=== PATIENT | female | born 1985 | race Asian ===

== ENCOUNTER → 2020-12-14 | Outpatient (CLI) | payer OTHER ==
[2015-09-11 11:14] VITALS: BP 109/66
[~2020-12-14] MED LIST: MEDR10TA PO
[2020-12-14 13:04] LABS: BASO # 0.2 x10^3/uL (0.0-0.2); BASO % 2 % (0-3); EOS # 0.2 x10^3/uL (0.0-0.7); EOS % 2 % (0-3); HEMATOCRIT 35.6 % (36.0-47.0); HEMOGLOBIN 11.6 g/dL (12.0-15.5); LYMPH # 2.2 x10^3/uL (1.0-4.8); LYMPH % 24 % (24-48); MEAN CORPUSCULAR HEMOGLOBIN 26 pg (25-35); MEAN CORPUSCULAR HGB CONC 33 g/dL (31-37); MEAN CORPUSCULAR VOLUME 80 fL (79-100); MONO # 0.5 x10^3/uL (0.0-1.1); MONO % 6 % (0-9); NEUT # 5.9 x10^3/uL (1.8-7.7); NEUT % 66 % (31-73); PLATELET COUNT 558 x10^3/uL (140-400); RED BLOOD COUNT 4.44 x10^6/uL (3.50-5.40); WHITE BLOOD COUNT 9.1 x10^3/uL (4.0-11.0)
[2020-12-14 13:13] LABS: ALBUMIN 3.6 g/dL (3.4-5.0); ALBUMIN/GLOBULIN RATIO 0.9 (1.0-1.7); CALCIUM 8.6 mg/dL (8.5-10.1); CREATININE 0.7 mg/dL (0.6-1.0); GFR 94.2; POTASSIUM 3.9 mmol/L (3.5-5.1); TOTAL BILIRUBIN 0.4 mg/dL (0.2-1.0); TOTAL PROTEIN 7.6 g/dL (6.4-8.2)
[2020-12-14 13:14] LABS: BILIRUBIN,URINE NEGATIVE (NEG); CLARITY,URINE CLOUDY; COLOR,URINE YELLOW; NITRITE,URINE NEGATIVE (NEG); PH,URINE 5.5 (<5.0-8.0); PROTEIN,URINE NEGATIVE (NEG-TRACE); UROBILINOGEN,URINE 0.2 mg/dL (0.2 mg/dL)
[2020-12-14 13:49] LABS: BACTERIA,URINE 0 /HPF (0-FEW); RBC,URINE 0 /HPF (0-2); WBC,URINE OCC /HPF (0-4)
== END ==
LOC: SURGPAT 12:17
PROVIDERS: ATTEND Obstetrics & Gynecology
DX: Z01.812 Encounter for preprocedural laboratory examination (principal)
CPT/HCPCS: 36415; 80053; 81001; 85025

== ENCOUNTER 2020-12-19 06:06 | Observation (INO) | payer OTHER ==
[2020-12-14 12:40] VITALS: BP 121/59
[2020-12-19] VITALS (11 sets, daily range): BP systolic 99–130; BP diastolic 63–84
[~2020-12-19] VITALS: Ht 157.5 cm; Wt 79.0 kg
[~2020-12-19 06:06] MED LIST changes: +HYDROmorphone 2 MG/ML VIAL IVP PRN; +PROCHLORPERAZINE 10 MG/2 ML VIAL. IVP PRN; +fentaNYL PF VIAL 100 MCG/2 ML VIAL IVP PRN
[2020-12-19] MEDS: IV RINGERS,LACTATED 1000ML 1,000 ML IV SCH ×2 (06:43→10:57)
[2020-12-19] MEDS ORDERED: ISOSULFAN BLUE 1% 50 MG/5 ML VIAL. SQ ONE ×2 (06:52→06:53)
[2020-12-19] MEDS ORDERED: ESTROGENS, CONJ VAGINAL CREAM 30GM TUBE. ONE (06:53)
[2020-12-19] MEDS ORDERED: BUPIVACAINE-EPI 0.5% 30 ML VIAL KIT. ONE (06:53)
[2020-12-19] MEDS ORDERED: LIDOCAINE 2% PF 5 ML VIAL. ONE (07:00)
[2020-12-19] MEDS ORDERED: DEXAMETHASONE SOD PHOS 4 MG/ML VIAL ONE (07:00)
[2020-12-19] MEDS ORDERED: PROPOFOL 10 MG/ML (20ML) VIAL. IV ONE ×2 (07:00→07:11)
[2020-12-19] MEDS ORDERED: ONDANSETRON PF 4 MG/2 ML VIAL. ONE (07:00)
[2020-12-19] MEDS ORDERED: ROCURONIUM 50 MG/5 ML VIAL. ONE ×2 (07:01→08:18)
[2020-12-19] MEDS ORDERED: SUCCINYLCHOLINE 200 MG/10 ML VIAL. ONE (07:01)
[2020-12-19] MEDS ORDERED: MIDAZOLAM HCL/PF 2 MG/2 ML VIAL. ONE (07:01)
[2020-12-19] MEDS ORDERED: fentaNYL PF VIAL 100 MCG/2 ML VIAL ONE ×3 (07:01→11:26)
[2020-12-19] MEDS ORDERED: BUPIVACAINE-EPI 0.25%-1:200000 MPF 30 ML VIAL. ONE (07:25)
[2020-12-19] MEDS ORDERED: NEOSTIGMINE METHYLSULFATE 5 MG/5 ML SYRINGE. ONE (08:17)
[2020-12-19] MEDS ORDERED: GLYCOPYRROLATE 1 MG/5 ML VIAL. ONE (08:17)
[2020-12-19] MEDS ORDERED: KETAMINE HCL IN NACL, ISO-OSM 50 MG/5 ML SYRINGE ONE (08:18)
--- NOTE | 2020-12-19 10:27 | PDOC ---
BRIEF OPERATIVE NOTE Date: Dec 19, 2020 Pre-Op Diagnosis simple endometrial hyperplasia, menorrhagia, anemia Post-Op Diagnosis same Procedure Performed LAVH/bilateral salpingectomy/lysis of adhesions Surgeon Dr. Gonzales Building Services Supervisor TRAN Gutierres Anesthesiologist Dr. Meehan Anesthesia Type: General Blood Loss 100cc IV Fluid 1L Urine Output 350cc clear via tan Specimens Obtained cervix, uterus, bilateral tubes Findings enlarged RV uterus, + adhesive disease and omental infraumbilical hernia, normal bilateral tubes and ovaries Complications none Operative Note [id number] ASHLEY GONZALES MD Dec 19, 2020 10:27
[2020-12-19] MEDS ORDERED: ONDANSETRON PF 4 MG/2 ML VIAL. IV PRN (10:30)
[2020-12-19] MEDS ORDERED: HYDROcodone/APAP 5/325MG 1 TAB TABLET PO PRN (10:30)
[2020-12-19] MEDS ORDERED: LACTULOSE 20 GM/30 ML SOLUTION. PO PRN (10:30)
[2020-12-19] MEDS ORDERED: MAG HYDROX/ALUMINUM HYD/SIMETH 30 ML ORAL.SUSP PO PRN (10:30)
[2020-12-19] MEDS ORDERED: ZOLPIDEM 5 MG TABLET. PO PRN (10:30)
[2020-12-19] MEDS ORDERED: diphenhydrAMINE HCL 25 MG CAPSULE PO PRN (10:30)
[2020-12-19] MEDS ORDERED: diphenhydrAMINE 50 MG/ML VIAL IV PRN (10:30)
[2020-12-19] MEDS ORDERED: MAGNESIUM HYDROXIDE 2,400 MG/30 ML ORAL.SUSP. PO PRN (10:30)
[2020-12-19] MEDS ORDERED: MORPHINE SULFATE 2 MG/ML INJ. IV PRN (10:30)
[2020-12-19] MEDS ORDERED: 0.9 % SODIUM CHLORIDE 10 ML DISP.SYRIN. IV PRN (10:30)
[2020-12-19] MEDS ORDERED: NALOXONE 0.4 MG/ML VIAL. IV PRN (10:30)
[2020-12-19] MEDS ORDERED: CALCIUM CARBONATE 500 MG TAB.CHEW PO PRN (10:30)
[2020-12-19] MEDS ORDERED: SIMETHICONE 80 MG TAB.CHEW PO PRN (10:30)
--- NOTE | 2020-12-19 10:50 | OP ---
DATE OF SURGERY: 12/19/2020 PREOPERATIVE DIAGNOSES: Menorrhagia, anemia and simple endometrial hyperplasia on biopsy in the office. POSTOPERATIVE DIAGNOSES: Menorrhagia, anemia, simple endometrial hyperplasia on biopsy in the office and adhesive disease. PROCEDURE: Laparoscopic-assisted vaginal hysterectomy, bilateral salpingectomy and lysis of adhesions. SURGEON: Agata Gonzales MD POST PRODUCTION ASSISTANT: TRAN Rasmussen ANESTHESIOLOGIST: Dr. Meehan. BLOOD LOSS: 100 mL. URINE OUTPUT: 350 mL clear via Ducnan catheter. IV FLUIDS: One liter crystalloid. SPECIMENS: Cervix, uterus, bilateral tubes. FINDINGS: She had an enlarged retroverted uterus, some adhesive disease on the left side and she had omental adhesions to the anterior abdominal wall. When these were taken down, it did look to be that there was a little hernia there from her prior tubal ligation, no bowel in it, but omentum. Normal bilateral tubes and ovaries. COMPLICATIONS: None. DESCRIPTION OF PROCEDURE: This patient was taken to the operating room where general anesthesia was placed. The patient was placed in dorsal lithotomy position in Caesar stirrups. The patient's abdomen and vagina were both prepped and draped in the normal sterile fashion and a Duncan catheter had been inserted under sterile technique. Upon my arrival, a timeout was performed. Once everyone agreed on the patient, the site, the procedure, the antibiotics, the procedure was initiated. A bivalve speculum was placed in the patient's vagina. Single-tooth tenaculum was used to grasp the anterior lip of the cervix. 10 mL of 0.25% Marcaine with epinephrine was used to circumferentially inject around the cervix for both hemodissection and hemostatic purposes later. The open bivalve speculum was then removed. Top gloves were discarded and changed. Attention was then turned to the abdomen where a small infraumbilical skin incision was made with a scalpel. Curved Abigail was used to dissect through the subcuticular layer to the fascia. The 5 mm Visiport was used directly into the abdominal cavity. Direct abdominal placement was confirmed via the laparoscope. Opening patient pressure was 3-4 mmHg. Carbon dioxide gas was used to appropriately insufflate the abdominal cavity to maintain a pressure of 15 mmHg. Overhead lights were dimmed and Trendelenburg position was assumed. There was omentum right in front of it. I could not tell if it was on the tip of the trocar or in front of the trocar. So, I was able to easily get around it and put a trocar in laterally after transilluminating the abdominal wall, finding an area clear of any vasculature, making a small incision and putting in a 5 mm disposable atraumatic trocar under direct visualization. Camera was moved laterally and it was easily seen that it was completely separate from the trocar, it was in front of the trocar on the anterior abdominal wall. So, the LigaSure was used to take down. The third trocar was put in the left lower quadrant port under direct visualization, finding an area clear of any vasculature, transilluminating the wall, making the incision and placing in under direct visualization. 3-4 mL of air was placed in all three trocar cuffs under direct visualization. At this point, the Maryland was used to gently move around that adhesion making sure there was no bowel. It was all omentum and finding openings in it and it was gently pulled down with the Maryland and then the monopolar hook was used to cut across it and then cross it with the grasper of the LigaSure. There was definitely peritoneum on the other side of the adhesion that was from the anterior abdominal wall. It looked like it was a empty hernia sac now once the omentum was pulled down, but it was out of the way and we could see to operate now. So at this point, the left tube and ovary were elevated finding the ureter coursing low staying below the tube above the ovary, leaving the ovaries per the patient request, doing a salpingectomy, crossing the left uteroovarian pedicle and the left round ligament, cauterizing and cutting with the LigaSure the whole way. This was done exactly the same on the right side, elevating the right tube and ovary finding the ureter coursing low in the pelvis there, again staying under the tube above the ovary, doing a salpingectomy per the patient request with the LigaSure, cauterizing and cutting crossing the right uteroovarian pedicle and then the right round ligament. Once this was done, the uterus was pushed cephalad to the head of the bed and the bladder flap was created sharply and elevated with the Maryland and the monopolar hook was used to cut across and create a bladder flap and gently pulling it down. Once this was done, crossing contralaterally, hugging the cervix, getting the uterines and once the bladder was down, cauterizing and cutting through the cardinal and broad ligaments down to the level of the uterosacral and then crossing and getting the uterine vessels on the right side as well and then hugging posteriorly staying on that cervix and going down posteriorly again making sure the bladder was down anteriorly. Once this was done, the uterus was completely free and blanched. All instruments were removed from the abdomen and attention was turned vaginally. The single tooth and Valtchev were removed. The weighted speculum was placed in the vagina. Thyroid Sree clamps were placed on the anterior and posterior lips of the cervix respectively. A scalpel was used to make a circumferential incision in the cervix. An open Ray-Dayan 4 x 4 was used to gently push up the anterior bladder peritoneum and the peritoneum was digitally and bluntly entered. The curved Shade was placed in the anterior cul-de-sac. The 4 x 4 had been removed. At this point, the cervix was elevated and the posterior cul-de-sac was sharply entered with the curved Cee scissors and a #0 Vicryl stitch was used to secure the posterior peritoneum to the vaginal cuff. It was tagged with a curved Abigail clamp. The needle was cut and passed off. The short weighted vaginal speculum was removed and replaced with the long weighted Brittney speculum in the posterior cul-de-sac. At this point, curved Josselin clamps x 2 were placed on the patient's left uterosacral ligament where they were doubly clamped with curved Josselin clamps, cut with curved Cee scissors and suture ligated x 2 with 0 Vicryl. Second one was taken through the vaginal cuff securing uterosacral ligament to the vaginal cuff, tagged with a straight Abigail clamp. The needle was cut and passed off. This was all done exactly the same on the right side, double clamping the uterosacrals with curved Josselin's, cutting with curved Cee scissors, suture ligating x 2 with 0 Vicryl, taking the second one through the vaginal cuff, tagging it with a straight Abigail clamp, cutting and passing the needle off. The remaining pedicles on both sides were delineated with the curved right angle clamp and vaginal LigaSure was used to cauterize and cut. Cervix, uterus, bilateral tubes were delivered in total and passed off for permanent pathology. A sponge stick was used to examine the pedicles, which appeared to be dry. You could see the anterior bladder peritoneum very easily. It was grasped with a long Allis. The long Brittney speculum was removed from the posterior cul-de-sac and replaced with a short weighted vaginal speculum again. 2-0 Vicryl was taken through the anterior bladder peritoneum, left uterosacral ligament, posterior peritoneum and right uterosacral ligament, thus closing the peritoneum in a pursestring like fashion. Once this was done, the right and left uterosacral tags were clipped. The cuff was closed in an anterior to posterior running locked fashion and tied to that posterior cuff tag. A few imbricating stitches were placed for hemostasis and the cuff looked hemostatic and dry and everything looked good and was examined with a sponge stick. Once hemostasis was assured here, all instruments were accounted below x 2 by OR personnel. All gloves were discarded and changed and attention was turned back above for a second look. The patient was placed back in Trendelenburg, overhead lights were dimmed. Copious irrigation revealed hemostasis. Right and left pericolic gutters were clear. Tisseel was placed over the cuff with excellent results and pedicles. Both ovaries remained intact as per the patient request. So, all the 4-5 mL of air was taken out from the trocar cuff. The right and left lower quadrant ports were removed under direct visualization. Gas was released. The cuff was examined again before coming out and it still remained hemostatic and dry. So, gas was released through that umbilical port and then it was removed as well. All 3 port sites were closed with 4-0 nylon at the skin and injected with 10 mL of local. The patient's catheter was removed. The patient was awakened from anesthesia and has been brought to recovery room in stable condition. JUSTICE DR: Julius TID: [id number]
[2020-12-19] MEDS ORDERED: KETOROLAC 30 MG/ML VIAL. ONE (10:59)
[2020-12-19] MEDS: MORPHINE SULFATE 2 MG/ML INJ. IVP PRN ×2 (11:02→11:24)
[2020-12-19] MEDS ORDERED: KETOROLAC 30 MG/ML VIAL. IVP ONE (11:15)
[2020-12-19] MEDS: fentaNYL PF VIAL 100 MCG/2 ML VIAL IVP PRN ×2 (11:20→11:29)
[2020-12-19] MEDS: oxyCODONE/APAP 5/325 1 TAB TABLET PO PRN (22:16)
[2020-12-20] MEDS: oxyCODONE/APAP 5/325 1 TAB TABLET PO PRN ×3 (02:14→13:32)
[2020-12-20 02:15] VITALS: BP 116/68
[2020-12-20 06:28] VITALS: BP 121/72
[2020-12-20 08:15] VITALS: BP 108/43
--- NOTE | 2020-12-20 09:37 | PDOC ---
SURGICAL PROGRESS NOTE DATE: 12/20/20 TIME: 09:31 Subjective Doing well except gassy pain. Up eating breakfast upon exam. No vaginal bleeding. Voiding and ambulating well Vital Signs Vital Signs Date Time Temp Pulse Resp B/P (MAP) Pulse Ox O2 Delivery O2 Flow Rate FiO2 12/20/20 08:15 98.2 54 18 108/43 (64) Room Air 98.2 12/20/20 06:28 99 12/19/20 10:38 10 I&O Intake and Output 12/20/20 07:00 Intake Total 1450 ml Output Total 2200 ml Balance -750 ml Intake IV Total 1450 ml Output Urine Total 1950 ml Emesis 150 ml Estimated Blood Loss 100 ml # Voids 3 PATIENT HAS A BUSTOS: No General: Alert, Oriented X3, Cooperative, No acute distress HEENT: Atraumatic Heart: Regular rate Abdomen: Soft, Other (port sites all c/d/i) Extremities: No clubbing, No cyanosis, No edema Skin: No rashes, No breakdown, No significant lesion Neuro: Normal speech Psych/Mental Status: Mental status NL, Mood NL Labs Laboratory Tests Test 12/19/20 06:26 Bedside Urine HCG, Qualitative Hcg negative (Negative) I have reviewed the following labs still not even drawn yet this am Cardiovascular: No pertinent hx Pulmonary: No pertinent hx GI: No pertinent hx Heme/Onc: Anemia NOS Assessment/Plan POD#1 s/p LAVH/bilateral salpingectomy/lysis of adhesions Routine PO care d/c to home later today if bloodwork ok keep scheduled follow up in one week with me in the office already has narcotic pain meds at home ok for OTC ibuprofen as needed to alternate as well call or return sooner for any other questions or concerns not limited to but including pain unrelieved with pain meds, increased or unexplained vb or T>100.4 NPV x 6 weeks light/limited activity x 2 [address] x 1 week or while on narcotic pain meds Justicifation of Admission Dx: Justifications for Admission: Justification of Admission Dx: Yes ASHLEY WILKS MD Dec 20, 2020 09:37
--- NOTE | 2020-12-20 09:40 | PDOC3 ---
Discharge Summary Visit Information Date of Admission: Dec 19, 2020 Date of Discharge: Dec 20, 2020 Final Diagnosis simple endometrial hyperplasia Brief Hospital Course Allergies Allergies Coded Allergies Type Severity Reaction Last Updated Verified No Known Drug Allergies 12/19/20 No Vital Signs Vital Signs Date Time Temp Pulse Resp B/P (MAP) Pulse Ox O2 Delivery O2 Flow Rate FiO2 12/20/20 08:15 98.2 54 18 108/43 (64) Room Air 98.2 12/20/20 06:28 99 12/19/20 10:38 10 Lab Results Laboratory Tests Test 12/19/20 06:26 Bedside Urine HCG, Qualitative Hcg negative (Negative) Brief Hospital Course Ms. Morrison is a 35 old female who presented with menorrhagia, anemia, simple endometrial hyperplasia on emb in office. Presented for hysterectomy and definitive management. She underwent LAVH/bilateral salpingectomy and lysis of adhesions with small infraumbilical hernia. she has had an unremarkable postoperative course. She is voiding without problems, no vag bleeding. as long as hgb is ok and bloodwork good will dc to home later today Assessment Assessment POD#1 s/p LAVH/bilateral salpingectomy/lysis of adhesions Routine PO care d/c to home later today if bloodwork ok keep scheduled follow up in one week with me in the office already has narcotic pain meds at home ok for OTC ibuprofen as needed to alternate as well call or return sooner for any other questions or concerns not limited to but including pain unrelieved with pain meds, increased or unexplained vb or T>100.4 NPV x 6 weeks light/limited activity x 2 weeks [address] x 1 week or while on narcotic pain meds Discharge Information Condition at Discharge: Stable Follow Up: Weeks Disposition/Orders: D/C to Home Discontinued Medications Medroxyprogesterone Acetate (Provera) 10 Mg Tablet, 1 TAB PO BID for bleeding, #10 (Reported) Entered as Reported by: Linda Hannah on 12/14/20 1235 Last Action: Discontinued on 12/19/20 0742 by ASHLEY WILKS Patient Instructions Patient Instructions POD#1 s/p LAVH/bilateral salpingectomy/lysis of adhesions Routine PO care d/c to home later today if bloodwork ok keep scheduled follow up in one week with me in the office already has narcotic pain meds at home ok for OTC ibuprofen as needed to alternate as well call or return sooner for any other questions or concerns not limited to but including pain unrelieved with pain meds, increased or unexplained vb or T>100.4 NPV x 6 weeks light/limited activity x 2 [address] x 1 week or while on narcotic pain meds Justicifation of Admission Dx: Justifications for Admission: Justification of Admission Dx: Yes ASHLEY WILKS MD Dec 20, 2020 09:40
[2020-12-20 10:08] LABS: CALCIUM 8.3 mg/dL (8.5-10.1); CREATININE 0.8 mg/dL (0.6-1.0); GFR 80.7; POTASSIUM 3.7 mmol/L (3.5-5.1)
[2020-12-20 13:30] VITALS: BP 110/68
--- NOTE | 2020-12-21 17:09 | PATHOLOGY ---
[facility] Accession Number: [id number] . 01 Material submitted: . uterus - UTERUS, CERVIX AND BILATERAL TUBES. Modifiers: bilateral . 02 Diagnosis: Uterus and attached bilateral fallopian tubes, laparoscopic assisted vaginal hysterectomy with bilateral salpingectomy: - Adenomyosis, uterine corpus (uterine weight 98 grams). - Mild chronic cervicitis with focal squamous metaplasia. - Secretory pattern endometrium showing stromal decidualization and focal hemorrhage and acute inflammation. - Congestion of bilateral fallopian tubes. - Left paratubal cyst. (JPM:julio césar; 12/21/2020) MBR 12/21/2020 1622 Local . 02 Comment: The endometrium is lush and has a secretory appearance with stromal decidualization and predominantly inactive appearing endometrial glands consistent with progesterone effect. The endometrium shows focal hemorrhage and acute inflammation. There is no evidence of hyperplasia or malignancy. (JPM:fret saw operator; 12/21/2020) . 02 Electronically signed: . Jose R Lewis MD, Pathologist NPI- [id number] . 01 Gross description: . Fixative: Formalin Labeled: Uterus, cervix, bilateral tubes Specimen received: Uterus with attached cervix and attached bilateral fallopian tubes Uterus weight: 98 g Uterus: 9.0 x 5.6 x 4.3 cm Serosa: [place]-olivarez, smooth Ectocervix: Pale olivarez, smooth to red-brown, roughened Cervical os: Slit-like, measuring 1.0 cm Endocervical canal: 2.5 cm Endometrial cavity: 5.3 x 2.6 cm Endometrium: Pale olivarez to red-brown, lush, friable Endometrial thickness: Up to 1.0 cm Myometrium: Olivarez-pink, trabeculated Myometrium thickness: Up to 2.0 cm Lesions/abnormalities: A slight amount of possible adenomyosis in the anterior aspect Left fallopian tube: 3 g, fimbriated; 6.1 cm in length, 0.8 cm in diameter with a single paratubal cyst measuring 0.5 cm Left fallopian tube cut surface: Patent lumen Right fallopian tube: 3 g, fimbriated; 5.6 cm in length, 0.6 cm in diameter Right fallopian tube cut surface: Patent lumen . The specimen is submitted telephone claims representative as follows: A1 12:00 cervix A2 6:00 cervix A3 full-thickness anterior endomyometrium A4-A10 remainder of anterior endometrium submitted from fundal to cervical aspects A11 full-thickness posterior endomyometrium A12-A16 remainder of posterior endometrium submitted from fundal to cervical aspects A17 telephone claims representative sections of left fallopian tube, to include fimbria A18 telephone claims representative sections of right fallopian tube, to include fimbria. (CAA; 12/20/2020) [facility] 12/20/2020 0924 Local . 02 Pathologist provided ICD-10: N80.0, N72, N87.9, N71.1, N83.8 . 02 CPT . 197754 Specimen Comment: A courtesy copy of this report has been sent to [phone] Specimen Comment: Report sent to Specimen Comment: A duplicate report has been generated due to demographic updates. Performed at: 01 [facility] [address] [facility] [address], [place] [id number] MD Adrián Davalos MD Phone: [phone] Performed at: 02 [facility] [address] [place], [place] [id number] MD Jose R Lewis MD Phone: [phone]
== END 2020-12-20 13:40 | disposition home or self-care (01) ==
LOC: SURG 06:06 → 3 SO LND 10:31
PROVIDERS: ADMIT Obstetrics & Gynecology; ATTEND Obstetrics & Gynecology
DX: N92.0 Excessive and frequent menstruation with regular cycle (principal); D64.9 Anemia, unspecified; N85.01 Benign endometrial hyperplasia; K66.0 Peritoneal adhesions (postprocedural) (postinfection); N85.4 Malposition of uterus; Z98.51 Tubal ligation status
CPT/HCPCS: 36415; 58552; 80048; 81025; 85014; 86850; 86900; 86901; 88307; 96360; 96361; A4314; A4930; A6219; G0378; G0379; J0330; J0690; J1100; J1885; J2250; J2270; J2405; J2704; J2710; J3010; J3480; J3490; J7120; A4222; A4223; A4657; Q9968